=== PATIENT | female | born 1990 | race Caucasian/White ===

== ENCOUNTER → 2020-02-06 | Outpatient (REF) | payer OTHER | LOC: M SFHCWAGY 17:03 | PROVIDERS: ATTEND Nurse Practitioner Women's Health | DX: Z12.4 Encounter for screening for malignant neoplasm of cervix (principal); Z01.419 Encounter for gynecological examination (general) (routine) without abnormal findings ==

== ENCOUNTER → 2020-03-18 | Outpatient (CLI) | payer OTHER ==
--- NOTE | 2020-03-19 07:27 | REP ---
INDICATION: ABN FINDING OF LUNG COMPARISON: Outside examination dated 08/13/2019 TECHNIQUE: Axial noncontrast images from the thoracic inlet to the upper abdomen with coronal and sagittal reformations. This CT examination was performed using the following dose reduction techniques: Automated exposure control, adjustment of mA and/or kv according to the patient's size, and use of iterative reconstruction technique. FINDINGS: Ill-defined somewhat linear areas of opacity and interstitial prominence at the lingula and very subtle tree in bud interstitial changes in the medial right base have increased as compared with prior examination and may represent acute on chronic infectious process. Remainder of lung castaneda are well aerated and clear. No further consolidation, suspicious nodule or mass. No effusion. No pneumothorax. Tracheobronchial tree is patent. No adenopathy. Normal appearance to the thoracic aorta, pulmonary vasculature, and heart/pericardium. Surrounding musculoskeletal structures are intact. IMPRESSION: Subtle areas of opacity and interstitial changes in the lingula and medial right lower lobe may represent acute on chronic infectious/inflammatory process. Correlation with physical examination is recommended along with 6 month follow-up examination if necessary. <Electronically signed by Wilbur Lam > 03/19/20 [id number]
== END ==
LOC: M RAD 08:18
PROVIDERS: ATTEND Nurse Practitioner Adult Health
DX: R91.8 Other nonspecific abnormal finding of lung field (principal)

== ENCOUNTER → 2021-07-26 | Outpatient (REF) | payer OTHER | LOC: M LAB REF 16:58 | PROVIDERS: ATTEND Nurse Practitioner Adult Health | DX: J45.40 Moderate persistent asthma, uncomplicated (principal) ==

== ENCOUNTER 2024-04-25 09:46 | Day surgery (SDC) | payer OTHER ==
[~2024-04-25] VITALS: Ht 162.6 cm; Wt 84.9 kg
[2024-04-25] MEDS ORDERED: LIDOCAINE W/EPINEPHRINE 1% 20ML VIAL XX ONE (10:35)
[2024-04-25] MEDS ORDERED: FLUT1BLS8 INH (10:47)
[2024-04-25] MEDS ORDERED: IBUP80TA PO (10:47)
[2024-04-25] MEDS ORDERED: OYST1TAB PO (10:47)
[2024-04-25] MEDS ORDERED: MUCI1TAB16 PO (10:47)
[2024-04-25] MEDS ORDERED: ZYRTTAB8 PO (10:47)
[2024-04-25] MEDS ORDERED: B-12100010 PO (10:47)
[2024-04-25] MEDS ORDERED: MONT10TA97 PO (10:47)
[2024-04-25] MEDS ORDERED: ARNU1INH INH (10:47)
[2024-04-25] MEDS ORDERED: POLYSPORIN TOPICAL OINTMENT 15GM As Ordered ONE (11:09)
[2024-04-25] MEDS: LIDOCAINE 1% MDV 20ML VIAL XX ONE (11:10)
[2024-04-25] MEDS: SODIUM BICARBONATE 8.4% INJ 50MEQ 50ML VIAL XX ONE (11:10)
[2024-04-25 12:43] VITALS: BP 143/80; TEMP 98.6; O2SAT 97
== END 2024-04-25 12:50 | disposition home or self-care (01) ==
LOC: M SDC 09:46
PROVIDERS: ATTEND Orthopaedic Surgery Hand Surgery
DX: S68.622A Partial traumatic transphalangeal amputation of right middle finger, initial encounter (principal); S68.624A Partial traumatic transphalangeal amputation of right ring finger, initial encounter; Y92.9 Unspecified place or not applicable; Y93.9 Activity, unspecified; Y99.9 Unspecified external cause status; J45.909 Unspecified asthma, uncomplicated; Z79.51 Long term (current) use of inhaled steroids

== ENCOUNTER → 2024-05-02 | Outpatient (CLI) | payer OTHER ==
[~2024-05-02] MED LIST: ARNU1INH INH; B-12100010 PO; FLUT1BLS8 INH; IBUP80TA PO; MONT10TA97 PO; MUCI1TAB16 PO; OYST1TAB PO; ZYRTTAB8 PO
== END ==
LOC: M SOG 07:55
PROVIDERS: ATTEND Physician Assistant
DX: S68.622D Partial traumatic transphalangeal amputation of right middle finger, subsequent encounter (principal); S68.624D Partial traumatic transphalangeal amputation of right ring finger, subsequent encounter

== ENCOUNTER → 2024-06-04 | Outpatient (CLI) | payer OTHER | LOC: M SOG 07:49 | PROVIDERS: ATTEND Physician Assistant | DX: S68.622D Partial traumatic transphalangeal amputation of right middle finger, subsequent encounter (principal); S68.624D Partial traumatic transphalangeal amputation of right ring finger, subsequent encounter ==

== ENCOUNTER → 2024-09-19 | Outpatient (REF) | payer OTHER ==
[2024-09-23 14:12] LABS: HPV APTIMA Not Detected (Not Detected)
== END ==
LOC: M SFHCWAGY 13:26
PROVIDERS: ATTEND Advanced Practice Midwife
DX: Z12.4 Encounter for screening for malignant neoplasm of cervix (principal)
CPT/HCPCS: 87624; G0123